=== PATIENT | male | born 1960 | race Asian ===

== ENCOUNTER → 2017-11-30 12:25 | Outpatient (CLI) | payer OTHER, SELFPAY ==
[2017-12-05 13:08] LABS: QuantiFERON TB Negative (Negative)
== END ==
PROVIDERS: PCP Internal Medicine; Visit Provider Anesthesiology
DX: R76.12 Nonspecific reaction to cell mediated immunity measurement of gamma interferon antigen response without active tuberculosis (principal)
CPT/HCPCS: 36415; 86480

== ENCOUNTER → 2018-03-29 16:16 | Outpatient (REF) | payer OTHER, SELFPAY | LOC: LAB 16:16 | PROVIDERS: PCP Internal Medicine; Visit Provider Anesthesiology | DX: Z23 Encounter for immunization (principal) | CPT/HCPCS: 86648; 86774 ==

== ENCOUNTER → 2018-06-26 14:56 | Outpatient (CLI) | payer SELFPAY ==
--- NOTE | 2018-06-26 | DI.MRI.S_ITS ---
PROCEDURE: MR HEAD/BRAIN WO CON INDICATIONS: SEIZURES TECHNIQUE: Noncontrast axial T1 spin echo, axial T2 fast spin echo, sagittal and axial FLAIR, coronal T2 fast spin echo, axial gradient echo, axial diffusion and ADC through the brain. COMPARISON: None. FINDINGS: Image quality: Excellent CSF Spaces: Basal cisterns are patent. No extra-axial fluid collections. Ventricles are normal in size and shape. Brain: No intracranial masses or hemorrhage. [place]/white matter interface is normal. Brainstem appears normal. Diffusion-weighted images demonstrate no acute ischemic insult. No chronic ischemic insults. Normal intravascular flow voids are present. Skull and face: Calvarium has normal marrow signal. Mild irregularity of a right globe, unclear etiology or significance. There is questionable right lateral retinal thickening Sinuses: Sphenoid sinus disease. The mastoids are clear. IMPRESSION: Mild irregularity of the right globe. Recommend ophthalmologic consultation and assessment. Sphenoid sinus disease. Otherwise unremarkable examination as above Dictated by: Tito Walker M.D. on 06/26/2018 at 15:53 Approved by: Tito Walker M.D. on 06/26/2018 at 15:58
== END ==
PROVIDERS: PCP Internal Medicine; Visit Provider Anesthesiology
DX: R56.9 Unspecified convulsions (principal); J32.3 Chronic sphenoidal sinusitis
CPT/HCPCS: 70551

== ENCOUNTER → 2019-01-09 07:54 | Outpatient (CLI) | payer SELFPAY | PROVIDERS: PCP Internal Medicine | DX: Z23 Encounter for immunization (principal) | CPT/HCPCS: 90471; 90686 ==

== ENCOUNTER → 2019-05-04 16:29 | Outpatient (CLI) | payer OTHER, SELFPAY ==
[2019-05-04 17:00] LABS: Add Manual Diff / Slide Review NO; Basophils Absolute Auto 100 /uL (0-100); Basophils Percent Auto 0.9 % (0-2); Eosinophils Absolute Auto 700 /uL (0-450); Eosinophils Percent Auto 9.3 % (2-4); Hematocrit 42.2 % (41-53); Hemoglobin 14.3 g/dL (13.5-17.5); Lymphocytes Absolute Auto 1800 /uL (1100-4500); Lymphocytes Percent Auto 23.5 % (25-40); Mean Corpuscular HGB Conc 33.8 % (30-36); Mean Corpuscular Hemoglobin 30.5 PG (26-34); Mean Corpuscular Volume 90.1 fL (80-100); Monocytes Absolute Auto 800 /uL (0-900); Monocytes Percent Auto 10.4 % (3-14); Neutrophils Absolute Auto 4200 /uL (1500-7000); Neutrophils Percent Auto 55.9 % (50-75); Platelet Count 207 X10^3/uL (150-400); Red Blood Cell Count 4.68 X10^6/uL (4.5-5.9); Red Cell Distribution Width 13.9 % (11.6-14.8); White Blood Cell Count 7.5 X10^3/uL (4.5-11.0)
== END ==
PROVIDERS: PCP Internal Medicine; Visit Provider Anesthesiology
DX: Z00.00 Encounter for general adult medical examination without abnormal findings (principal)
CPT/HCPCS: 36415; 85025

== ENCOUNTER 2020-01-31 08:46 | Emergency (ER) | payer OTHER, SELFPAY ==
[2020-01-31 08:50] VITALS: BP 138/89; PULSE 76; RESP 16; TEMP 36.4; O2SAT 100
--- NOTE | 2020-01-31 08:50 | ED_ITS ---
HPI - Recheck/Abnormal Lab/Rx General Chief Complaint: Recheck/Abnormal Lab/Rx Stated Complaint: Covid Swab Time Seen by Provider: 01/31/20 08:46 Source: patient Mode of arrival: Ambulatory Limitations: no limitations History of Present Illness HPI narrative: Patient is a 60-year-old male who presents for need for covid test. 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 It is required that he has covid test. Related Data Allergies Allergy/AdvReac Type Severity Reaction Status Date / Time No Known Allergies Allergy Uncoded 07/27/17 12:09 Review of Systems Review of Systems Narrative: GENERAL: Denies chills, fatigue, malaise, fever, sweats, travel HEENT: Denies sinus pain, ear pain, sore throat, difficulty swallowing, neck pain RESPIRATORY: Denies dyspnea, cough, wheezing, hemoptysis, sputum. CARDIOVASCULAR: Denies chest pain, palpitations, orthopnea, edema GASTROINTESTINAL: Denies nausea, vomiting, abdominal pain, diarrhea, constipation, melena. : Denies dysuria, frequency, incontinence, hematuria, urinary retention, flank pain. MUSCULOSKELETAL: Denies weakness, joint pain, or bony pain SKIN: No rash, no erythema, no pruritus NEUROLOGIC: Denies weakness, dizziness, headache, numbness, change in speech, confusion PSYCHIATRIC: No concerning psychosocial issues. 12 point review of systems is negative except for those stated above and HPI Patient History Medical History Patient denies medical problems (Acute) Family History Father CLL (chronic lymphocytic leukemia) Hypertension Stroke Mother Age: 80 Hypertension Social History Smoking Status: Never smoker Exam Initial Vital Signs Initial Vital Signs: Vital Signs Temperature 97.6 F 01/31/20 08:50 Pulse Rate 76 01/31/20 08:50 Respiratory Rate 16 01/31/20 08:50 Blood Pressure 138/89 01/31/20 08:50 Pulse Oximetry 100 01/31/20 08:50 GENERAL: Well-appearing, well-nourished and in no acute distress. CARDIOVASCULAR: peripheral pulses in tact, cap refill <2 sec RESPIRATORY: No respiratory distress, speaks in full sentences without difficulty EXTREMITIES: Normal range of motion, no clubbing or edema. Neurovascularly intact NEUROLOGICAL: Cranial nerves II through XII grossly intact. Normal gait and speech. SKIN: Warm, dry, no petechiae, no rashes or lesions. Course Orders Ordered: ED Orders 01/31/20 09:01 COVID19 -ED/INPAT/OR/L&D Routine 01/31/20 09:43 COVID19 -ED/INPAT/OR/L&D Stat Vital Signs Vital signs: Vital Signs - 8 hr 01/31/20 08:50 Temperature 97.6 F Pulse Rate 76 Respiratory Rate 16 Blood Pressure [Left Arm] 138/89 Pulse Oximetry 100 MDM - Recheck/Abnormal Lab/Rx Lab Data Labs: Lab Results 01/31/20 01/31/20 Range/Units 09:01 09:43 COVID-19 PCR Negative Negative (Negative) Discharge Plan Departure Patient Disposition: Home Clinical Impression: Worried well Discharge Date/Time: 01/31/20 10:47 Activity Restrictions/Additional Instructions: COVID Negative Try and have some fun while you are in [place]!! *Return to ER if you should have any new, worsening or concerning symptoms Referrals: Chip Wallace MD [Primary Care Provider] -
[2020-01-31 09:02] VITALS: BMI 23.7
[2020-01-31 09:20] LABS: COVID19 -Nasal RAPID Negative (Negative)
[2020-01-31 10:42] LABS: COVID19 -Nasal RAPID Negative (Negative)
== END 2020-01-31 10:47 | disposition home or self-care (01) ==
PROVIDERS: Emergency Provider Emergency Medicine; PCP Internal Medicine; Referring Provider Emergency Medicine
DX: Z11.59 Encounter for screening for other viral diseases (principal)
CPT/HCPCS: 87635; 99282

== ENCOUNTER 2020-02-17 10:52 | Emergency (ER) | payer OTHER, SELFPAY ==
[2020-02-17 10:53] VITALS: BP 151/94; PULSE 62; RESP 16; TEMP 36.8; O2SAT 100
--- NOTE | 2020-02-17 11:40 | ED.URI ---
HPI - URI/Sore Throat General Chief Complaint: Upper Respiratory Symptoms Stated Complaint: Needs Covid test Time Seen by Provider: 02/17/20 10:58 Source: patient Mode of arrival: Ambulatory Limitations: no limitations History of Present Illness HPI Narrative: Patient is a 60-year-old male requesting COVID test. He destruction from [place] for he worked in a supposed return to work tomorrow he has no symptoms. Related Data Allergies Allergy/AdvReac Type Severity Reaction Status Date / Time No Known Allergies Allergy Uncoded 07/27/17 12:09 Review of Systems Review of Systems Narrative: GENERAL: Denies chills, fatigue, malaise, fever, sweats, travel HEENT: Denies sinus pain, ear pain, sore throat, difficulty swallowing, neck pain RESPIRATORY: Denies dyspnea, cough, wheezing, hemoptysis, sputum. CARDIOVASCULAR: Denies chest pain, palpitations, orthopnea, edema GASTROINTESTINAL: Denies nausea, vomiting, abdominal pain, diarrhea, constipation, melena. : Denies dysuria, frequency, incontinence, hematuria, urinary retention, flank pain. MUSCULOSKELETAL: Denies weakness, joint pain, or bony pain SKIN: No rash, no erythema, no pruritus NEUROLOGIC: Denies weakness, dizziness, headache, numbness, change in speech, confusion PSYCHIATRIC: No concerning psychosocial issues. 12 point review of systems is negative except for those stated above and HPI Patient History Medical History Patient denies medical problems (Acute) Family History Father CLL (chronic lymphocytic leukemia) Hypertension Stroke Mother Age: 80 Hypertension Social History Smoking Status: Never smoker Smoking Status: Never smoker Substance Use Type: does not use Exam Initial Vital Signs Initial Vital Signs: Vital Signs Temperature 98.3 F 02/17/20 10:53 Pulse Rate 62 02/17/20 10:53 Respiratory Rate 16 02/17/20 10:53 Blood Pressure 151/94 H 02/17/20 10:53 Pulse Oximetry 100 02/17/20 10:53 GENERAL: Well-appearing, well-nourished and in no acute distress. CARDIOVASCULAR: peripheral pulses in tact, cap refill <2 sec RESPIRATORY: No respiratory distress, speaks in full sentences without difficulty EXTREMITIES: Normal range of motion, no clubbing or edema. Neurovascularly intact NEUROLOGICAL: Cranial nerves II through XII grossly intact. Normal gait and speech. SKIN: Warm, dry, no petechiae, no rashes or lesions. Course Orders Ordered: ED Orders 02/17/20 11:00 COVID19 -ED/INPAT/OR/L&D Urgent Vital Signs Vital signs: Vital Signs - 8 hr 02/17/20 10:53 Temperature 98.3 F Pulse Rate 62 Respiratory Rate 16 Blood Pressure 151/94 H Pulse Oximetry 100 MDM - URI/Sore Throat Lab Data Labs: Lab Results 02/17/20 Range/Units 11:00 COVID-19 PCR Negative (Negative) Discharge Plan Departure Patient Disposition: Home Clinical Impression: Worried well Instructions: Can COVID-19 be prevented? Activity Restrictions/Additional Instructions: *You have been diagnosed with COVID-19 is negative *Continue to take medications as directed *Follow up with your primary care provider in 2-3 days *Return to ER if you should have any new, worsening or concerning symptoms Referrals: Chip Wallace MD [Primary Care Provider] -
[2020-02-17 12:05] LABS: COVID19 -Nasal RAPID Negative (Negative)
[2020-02-17 12:11] VITALS: BP 151/95; PULSE 65; O2SAT 100
--- NOTE | 2020-02-17 12:20 | PC.NURSE ---
pt has no symptoms but is concerned due to travel and will be returning back to work.
== END 2020-02-17 12:18 | disposition home or self-care (01) ==
PROVIDERS: Emergency Provider Emergency Medicine; PCP Internal Medicine
DX: Z11.59 Encounter for screening for other viral diseases (principal)
CPT/HCPCS: 87635; 99282

== ENCOUNTER 2020-04-06 08:43 | Emergency (ER) | payer OTHER, SELFPAY ==
--- NOTE | 2020-04-06 08:47 | ED.RECABL ---
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 He says he is supposed to have a procedure done [facility] tomorrow and needs a COVID test. He is asymptomatic. Related Data Allergies Allergy/AdvReac Type Severity Reaction Status Date / Time No Known Allergies Allergy Uncoded 07/27/17 12:09 Review of Systems Review of Systems Narrative: GENERAL: Denies chills, fatigue, malaise, fever, sweats, travel HEENT: Denies sinus pain, ear pain, sore throat, difficulty swallowing, neck pain RESPIRATORY: Denies dyspnea, cough, wheezing, hemoptysis, sputum. CARDIOVASCULAR: Denies chest pain, palpitations, orthopnea, edema GASTROINTESTINAL: Denies nausea, vomiting, abdominal pain, diarrhea, constipation, melena. : Denies dysuria, frequency, incontinence, hematuria, urinary retention, flank pain. MUSCULOSKELETAL: Denies weakness, joint pain, or bony pain SKIN: No rash, no erythema, no pruritus NEUROLOGIC: Denies weakness, dizziness, headache, numbness, change in speech, confusion PSYCHIATRIC: No concerning psychosocial issues. 12 point review of systems is negative except for those stated above and HPI Patient History Medical History (Updated 04/06/20 @ 09:06 by Lissa Guevara DO) Patient denies medical problems Family History Father CLL (chronic lymphocytic leukemia) Hypertension Stroke Mother Age: 80 Hypertension Social History Smoking Status: Never smoker Smoking Status: Never smoker Substance Use Type: does not use Exam Initial Vital Signs Initial Vital Signs: Vital Signs Temperature 97.3 F L 04/06/20 08:49 Pulse Rate 77 04/06/20 08:49 Respiratory Rate 14 04/06/20 08:49 Blood Pressure 155/87 H 04/06/20 08:49 Pulse Oximetry 97 04/06/20 08:49 GENERAL: Well-appearing, well-nourished and in no acute distress. CARDIOVASCULAR: peripheral pulses in tact, cap refill <2 sec RESPIRATORY: No respiratory distress, speaks in full sentences without difficulty EXTREMITIES: Normal range of motion, no clubbing or edema. Neurovascularly intact NEUROLOGICAL: Cranial nerves II through XII grossly intact. Normal gait and speech. SKIN: Warm, dry, no petechiae, no rashes or lesions. Course Orders Ordered: ED Orders 04/06/20 08:52 COVID19 Stat Vital Signs Vital signs: Vital Signs - 8 hr 04/06/20 08:49 Temperature 97.3 F L Pulse Rate 77 Respiratory Rate 14 Blood Pressure 155/87 H Pulse Oximetry 97 MDM - Recheck/Abnormal Lab/Rx Lab Data Labs: Lab Results 04/06/20 Range/Units 08:45 COVID-19 PCR Negative (Negative) Discharge Plan Departure Patient Disposition: Home Clinical Impression: Feared complaint without diagnosis Instructions: Coronavirus Disease 2019 Activity Restrictions/Additional Instructions: *You have been diagnosed with COVID test negative *What to do: *Continue to take medications as directed *Follow up with your primary care provider in 2-3 days *Return to ER if you should have any new, worsening or concerning symptoms Referrals: Chip Wallace MD [Primary Care Provider] -
[2020-04-06 08:49] VITALS: BP 155/87; PULSE 77; RESP 14; TEMP 36.3; O2SAT 97; BMI 24.4
[2020-04-06 09:14] LABS: COVID19 -Nasal RAPID Negative (Negative)
== END 2020-04-06 09:32 | disposition home or self-care (01) ==
PROVIDERS: Emergency Provider Emergency Medicine; PCP Internal Medicine
DX: Z20.828 Contact with and (suspected) exposure to other viral communicable diseases (principal)
CPT/HCPCS: 87635; 99281; 99282

== ENCOUNTER → 2020-10-21 12:11 | Outpatient (CLI) | payer OTHER, SELFPAY ==
[2020-10-22 23:36] LABS: QuantiFERON Mitogen Value >10.00 IU/mL (.); QuantiFERON Nil Value 0.02 IU/mL (.); QuantiFERON TB Gold Plus Negative (Negative); QuantiFERON TB1 Ag Value 0.29 IU/mL (.); QuantiFERON TB2 Ag Value 0.23 IU/mL (.)
== END ==
PROVIDERS: PCP Internal Medicine; Referring Provider Anesthesiology; Visit Provider Anesthesiology
DX: Z00.00 Encounter for general adult medical examination without abnormal findings (principal)
CPT/HCPCS: 36415; 86480; 86735

== ENCOUNTER → 2020-12-05 16:19 | Outpatient (CLI) | payer OTHER, SELFPAY ==
[2020-12-05 17:38] LABS: Add Manual Diff / Slide Review NO; Basophils Absolute Auto 100 /uL (0-100); Basophils Percent Auto 1.1 % (0-2); Eosinophils Absolute Auto 600 /uL (0-450); Eosinophils Percent Auto 8.6 % (2-4); Hematocrit 41.7 % (41-53); Lymphocytes Absolute Auto 1300 /uL (1100-4500); Lymphocytes Percent Auto 19.9 % (25-40); Mean Corpuscular HGB Conc 33.5 % (30-36); Mean Corpuscular Hemoglobin 30.2 PG (26-34); Monocytes Absolute Auto 500 /uL (0-900); Monocytes Percent Auto 8.2 % (3-14); Neutrophils Absolute Auto 4000 /uL (1500-7000); Neutrophils Percent Auto 62.2 % (50-75); Platelet Count 194 X10^3/uL (150-400); Red Blood Cell Count 4.63 X10^6/uL (4.5-5.9); Red Cell Distribution Width 13.7 % (11.6-14.8); White Blood Cell Count 6.4 X10^3/uL (4.5-11.0)
[2020-12-05 18:23] LABS: Vitamin D 25 Hydroxy (D3) 47.8 ng/mL (30.0-100.0)
[2020-12-06 09:38] LABS: Varicella IgG Antibody 195 index (Immune >165)
== END ==
PROVIDERS: PCP Internal Medicine; Referring Provider Anesthesiology; Visit Provider Anesthesiology
DX: B01.9 Varicella without complication (principal); E55.9 Vitamin D deficiency, unspecified
CPT/HCPCS: 36415; 82306; 85025; 86787

== ENCOUNTER → 2021-02-26 19:19 | Outpatient (CLI) | payer OTHER, SELFPAY | PROVIDERS: PCP Internal Medicine; Referring Provider Internal Medicine; Visit Provider Internal Medicine | DX: Z23 Encounter for immunization (principal) | CPT/HCPCS: 90471; 90686 ==

== ENCOUNTER → 2021-03-05 15:39 | Outpatient (CLI) | payer OTHER, SELFPAY ==
[2021-03-05 18:39] LABS: Prostate Specific Antigen Scrn 1.23 ng/mL (0.1-4.0)
== END ==
PROVIDERS: PCP Internal Medicine; Referring Provider Internal Medicine; Visit Provider Internal Medicine
DX: Z12.5 Encounter for screening for malignant neoplasm of prostate (principal)
CPT/HCPCS: 36415; G0103

== ENCOUNTER → 2021-04-30 08:19 | Outpatient (CLI) | payer OTHER, SELFPAY ==
[2021-05-02 20:15] LABS: QuantiFERON Mitogen Value >10.00 IU/mL (.); QuantiFERON Nil Value 0.11 IU/mL (.); QuantiFERON TB Gold Plus Positive (Negative); QuantiFERON TB1 Ag Value 0.31 IU/mL (.); QuantiFERON TB2 Ag Value 0.49 IU/mL (.)
== END ==
PROVIDERS: PCP Internal Medicine; Referring Provider Anesthesiology; Visit Provider Anesthesiology
DX: Z11.1 Encounter for screening for respiratory tuberculosis (principal)
CPT/HCPCS: 36415; 86480

== ENCOUNTER → 2021-05-11 15:56 | Outpatient (CLI) | payer OTHER, SELFPAY ==
--- NOTE | 2021-05-11 15:58 | DI.RAD.S_ITS ---
PROCEDURE: XR CHEST 2V INDICATIONS: Positive TB TECHNIQUE: 2 views of the chest were acquired. COMPARISON: None. FINDINGS: Surgical changes and devices: None. Lungs and pleura: Lungs are clear. No pleural effusions or pneumothorax. Mediastinum: Mediastinal contours are normal. Heart size is normal. Bones and chest wall: No suspicious bony abnormalities. Soft tissues appear unremarkable. IMPRESSION: No acute pulmonary process. Dictated by: Kezia Collado M.D. on 05/11/2021 at 16:17 Approved by: Kezia Collado M.D. on 05/11/2021 at 16:17
== END ==
PROVIDERS: PCP Internal Medicine; Referring Provider Internal Medicine; Visit Provider Internal Medicine
DX: R76.11 Nonspecific reaction to tuberculin skin test without active tuberculosis (principal)
CPT/HCPCS: 71046

== ENCOUNTER → 2022-05-07 14:36 | Outpatient (CLI) | payer OTHER, SELFPAY ==
[2022-05-07 14:59] LABS: Add Manual Diff / Slide Review NO; Basophils Absolute Auto 100 /uL (0-100); Eosinophils Absolute Auto 500 /uL (0-450); Eosinophils Percent Auto 7.8 % (2-4); Hemoglobin 14.1 g/dL (13.5-17.5); Lymphocytes Absolute Auto 1200 /uL (1100-4500); Lymphocytes Percent Auto 18.7 % (25-40); Mean Corpuscular HGB Conc 32.7 % (30-36); Mean Corpuscular Hemoglobin 29.9 PG (26-34); Mean Corpuscular Volume 91.3 fL (80-100); Monocytes Absolute Auto 400 /uL (0-900); Neutrophils Absolute Auto 4200 /uL (1500-7000); Neutrophils Percent Auto 65.5 % (50-75); Platelet Count 213 X10^3/uL (150-400); Red Cell Distribution Width 14.1 % (11.6-14.8); White Blood Cell Count 6.4 X10^3/uL (4.5-11.0)
== END ==
PROVIDERS: PCP Internal Medicine; Referring Provider Anesthesiology; Visit Provider Anesthesiology
DX: Z12.89 Encounter for screening for malignant neoplasm of other sites (principal); Z80.6 Family history of leukemia
CPT/HCPCS: 36415; 85025

== ENCOUNTER → 2022-11-17 12:23 | Outpatient (CLI) | payer OTHER, SELFPAY ==
[2022-11-19 17:41] LABS: QuantiFERON Mitogen Value >10.00 IU/mL (.); QuantiFERON Nil Value 0.01 IU/mL (.); QuantiFERON TB Gold Plus Negative (Negative); QuantiFERON TB1 Ag Value 0.27 IU/mL (.); QuantiFERON TB2 Ag Value 0.26 IU/mL (.)
== END ==
PROVIDERS: PCP Internal Medicine; Referring Provider Anesthesiology; Visit Provider Anesthesiology
DX: A15.0 Tuberculosis of lung (principal)
CPT/HCPCS: 36415; 86480

== ENCOUNTER → 2023-08-29 14:22 | Outpatient (CLI) | payer OTHER, SELFPAY ==
[2023-08-29 16:05] LABS: Vitamin D 25 Hydroxy (D3) 73.1 ng/mL (30.0-100.0)
[2023-08-29 16:11] LABS: Testosterone 216 ng/dL (71.8-623)
== END ==
PROVIDERS: PCP Internal Medicine; Referring Provider Anesthesiology; Visit Provider Anesthesiology
DX: Z00.00 Encounter for general adult medical examination without abnormal findings (principal)
CPT/HCPCS: 36415; 82306; 84403

== ENCOUNTER → 2023-09-02 16:37 | Outpatient (CLI) | payer OTHER, SELFPAY ==
[2023-09-09 16:08] LABS: Testosterone, Free 5.1 pg/mL (6.6-18.1)
== END ==
PROVIDERS: PCP Internal Medicine; Referring Provider Anesthesiology; Visit Provider Anesthesiology
DX: Z00.00 Encounter for general adult medical examination without abnormal findings (principal)
CPT/HCPCS: 84402

== ENCOUNTER → 2023-09-30 15:31 | Outpatient (CLI) | payer OTHER, SELFPAY ==
[2023-09-30 18:10] LABS: Prostate Specific Antigen Scrn 2.55 ng/mL (0.1-4.0)
[2023-10-04 09:10] LABS: Percent Free Testosterone 4.24 % (1.50-4.20); Testosterone Free 13.92 ng/dL (5.00-21.00); Testosterone Total 328.3 ng/dL (264.0-916.0)
== END ==
PROVIDERS: PCP Internal Medicine; Referring Provider Internal Medicine; Visit Provider Internal Medicine
DX: Z12.5 Encounter for screening for malignant neoplasm of prostate (principal); E29.1 Testicular hypofunction
CPT/HCPCS: 36415; 84402; 84403; G0103

== ENCOUNTER → 2024-11-21 06:49 | Outpatient (CLI) | payer SELFPAY ==
--- NOTE | 2024-11-21 06:50 | DI.ECHO.S_ITS ---
[facility] : : [address] : : [place] : : [id number] : : Phone: [phone] Echocardiogram Report + + :Name: JAMA COFFEY Study Date: 11/21/2024 Height: 72 in : :[facility] ReadingLocation: Weight: 175 lb : : Gender: Male BSA: 2.0 m2 : :: 1960 Age: 64 yrs BP: 150/92 mmHg: :Reason For Study: BASELINE TEST : :Ordering Physician: ERLINDA, : :JAMA Performed By: Tricia Clemens : :Referring: JAMA COFFEY : + + Interpretation Summary - The left ventricular contractility is mildly compromised. Estimate ejection fraction is approximately 45 to 50% with mild global hypokinesis. No LVH. Indeterminate diastolic function. - The right ventricular contractility is mildly compromised. Prominent trabeculation is noted with possible mild hypertrophy. - Left atrial and right ventricular enlargement noted. The right atrium and left ventricle are of normal size. - Mild mitral regurgitation - Mild aortic insufficiency. - Trace to mild tricuspid regurgitation with estimated pulmonary systolic artery pressures of 23 mmHg. 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 - No obvious intracardiac masses nor thrombi. - No hemodynamically significant pericardial effusion. Conclusion: Mildly compromised biventricular systolic function with mild valvular insufficiencies. Cannot exclude arrhythmogenic right ventricular cardiomyopathy based upon 2D images. Procedure: A two-dimensional transthoracic echocardiogram with color flow and Doppler was performed. The study quality was technically adequate. There is no prior echocardiogram noted for this patient. The patient was in sinus bradycardia with heart rates between 48-55 bpm during the exam. Left Ventricle: The left ventricle is normal in size. There is normal left ventricular wall thickness. The ejection fraction is estimated to be 45-50%. Grade I diastolic dysfunction with normal left atrial pressure. Right Ventricle: The right ventricle is borderline dilated. Right ventricular systolic function is mildly reduced. Atria: The left atrium is mildly dilated. The right atrium is normal in size. The atrial septum is aneurysmal. There is no Doppler evidence for an interatrial shunt. Mitral Valve: The mitral valve leaflets appear to open well. The mitral valve leaflets appear borderline thickened. There is mild mitral regurgitation. Aortic Valve: The aortic valve is trileaflet. The aortic valve opens well. There is no aortic valve stenosis. There is mild aortic regurgitation. Tricuspid Valve: The tricuspid valve leaflets are thin and pliable. There is mild tricuspid regurgitation. The right ventricular systolic pressure is estimated to be at least 23 mmHg based on an estimated right atrial pressure of 3 mm Hg. Pulmonic Valve: The pulmonic valve is not well seen, but is grossly normal. There is no pulmonic valvular stenosis. There is no pulmonic valvular regurgitation. Great Vessels: The aortic root is normal size. The dimensions of the ascending aorta are normal. The IVC is of normal diameter and collapses greater than 50% with a sniff. This suggests a low right atrial pressure of 3 mm Hg. Pericardium/ Pleura There is no pericardial effusion. There is no pleural effusion. MMode/2D Measurements & Calculations LVIDd: 5.2 cm LVOT diam: 2.1 cm LVIDs: 4.1 cm Ao root diam: 3.3 cm FS: 21.5 % asc Aorta Diam: 3.7 cm EPSS: 1.3 cm Ao Arch Diam (Prox Trans): 3.0 cm IVSd: 0.72 cm LVPWd: 0.70 cm LV lewis. diameter/BSA (cm/m^2): 2.6 LV sys. diameter/BSA (cm/m^2): 2.0 LA A2 area: 25.1 cm2 RA long axis: 5.5 cm LA A4 area: 21.9 cm2 RA area: 17.3 cm2 LA length (vol): 5.8 cm RA vol: 46.4 ml LA vol: 79.9 ml RA : 23.0 ml/m2 LA vol index: 39.7 ml/m2 IVC diam: 1.4 cm RVD1 (basal): 4.0 cm RVD2 (mid): 4.1 cm TAPSE: 2.0 cm Doppler Measurements & Calculations Ao V2 max: 122.5 cm/sec LVOT Max Jovan: 86.9 cm/sec Ao V2 mean: 84.4 cm/sec LV V1 max P.0 mmHg Ao max P.0 mmHg LV V1 VTI: 19.3 cm Ao mean P.2 mmHg THALIA(I,D): 2.5 cm2 Ao V2 VTI: 27.9 cm THALIA(V,D): 2.5 cm2 sev ratio: 0.69 THALIA indexed to BSA (cm^2/m^2): 1.2 AI P1/2t: 706.3 msec AI dec slope: 142.9 cm/sec2 MV E max jovan: 45.5 cm/sec TR max jovan: 225.4 cm/sec MV A max jovan: 42.8 cm/sec TR max P.3 mmHg MV E/A: 1.1 PA V2 max: 64.6 cm/sec Med Peak E' Jovan: 8.6 cm/sec PA V2 mean: 41.8 cm/sec E/E' med: 5.3 PA mean P.82 mmHg Lat Peak E' Jovan: 10.3 cm/sec PA pr(Accel): -1.9 mmHg E/E' lat: 4.4 E/e' average: 4.8 MV dec time: 0.21 sec SV(LVOT): 68.5 ml Reading Physician:GREGORIO
== END ==
PROVIDERS: PCP Internal Medicine; Referring Provider Anesthesiology; Visit Provider Anesthesiology
DX: Z00.00 Encounter for general adult medical examination without abnormal findings (principal); I34.0 Nonrheumatic mitral (valve) insufficiency; I35.1 Nonrheumatic aortic (valve) insufficiency; I07.1 Rheumatic tricuspid insufficiency
CPT/HCPCS: 93306

== ENCOUNTER → 2024-11-23 13:33 | Outpatient (CLI) | payer OTHER, SELFPAY ==
[2024-11-23 18:59] LABS: Vitamin D 25 Hydroxy (D3) 85.5 ng/mL (30.0-100.0)
== END ==
LOC: LAB 13:34
PROVIDERS: PCP Internal Medicine; Referring Provider Anesthesiology; Visit Provider Anesthesiology
DX: Z00.00 Encounter for general adult medical examination without abnormal findings (principal)
CPT/HCPCS: 36415; 82306; 84305